=== PATIENT | female | born 1975 | race Caucasian/White ===

== ENCOUNTER → 2021-10-28 13:56 | Outpatient (BNVA) | payer OTHER, SELFPAY | PROVIDERS: PCP Internal Medicine; Visit Provider Psychiatry & Neurology Neurology | DX: R29.818 Other symptoms and signs involving the nervous system (principal); F32.A Depression, unspecified; F41.9 Anxiety disorder, unspecified | CPT/HCPCS: 99202 ==

== ENCOUNTER 2021-11-19 18:01 | Outpatient (REF) | payer OTHER, SELFPAY ==
--- NOTE | ~2021-11-19 | MR_ITS ---
EXAMINATION: MR BRAIN WITHOUT CONTRAST CLINICAL INFORMATION: Other symptoms and signs involving the nervous system. Patient states 2 concussions. COMPARISON: None available. TECHNIQUE: Multiplanar, multisequence imaging of the brain was performed without intravenous contrast. FINDINGS: There is no acute infarction, mass, hemorrhage, or extra-axial collection. The ventricles, sulci, and basilar cisterns are normal in size and configuration. The brain parenchyma signal appears normal. No encephalomalacia or gliosis is seen. The cerebellar tonsils terminate normally above the foramen magnum. The flow voids of the major intracranial arteries appear intact. The bones and extracranial soft tissues are unremarkable. MR/MR head/brain wo con IMPRESSION: No acute infarct, mass lesion, intracranial hemorrhage, or evidence of hydrocephalus.
== END 2021-11-19 18:02 | disposition home or self-care (01) ==
LOC: HO.MRI 18:01
PROVIDERS: Visit Provider Psychiatry & Neurology Neurology
DX: R29.818 Other symptoms and signs involving the nervous system (principal)
CPT/HCPCS: 70551

== ENCOUNTER 2021-12-08 12:41 | Outpatient (REF) | payer OTHER, SELFPAY ==
--- NOTE | 2021-12-08 12:43 | EEG_ITS ---
This is a 16-channel EEG with an EKG lead. The patient is reported awake during the tracing. Background EEG rhythm is low amplitude fast with no obvious asymmetry or paroxysmal tendency. Photic stimulation does not produce any significant abnormality. Hyperventilation is not performed. Cardiac lead does not reveal any significant abnormality. No sharp wave spikes or paroxysmal tendency noted. IMPRESSION: Unremarkable EEG. MD CATHLEEN Urias/RICKY / [id number]
== END 2021-12-08 12:42 | disposition home or self-care (01) ==
LOC: HO.NEURO 12:41
PROVIDERS: Visit Provider Psychiatry & Neurology Neurology
DX: R29.818 Other symptoms and signs involving the nervous system (principal)
CPT/HCPCS: 95816

== ENCOUNTER 2023-10-10 | Outpatient (REF) | payer OTHER, SELFPAY ==
[2023-10-11 11:12] LABS: Influenza A PCR NEGATIVE (Negative); Influenza B PCR NEGATIVE (Negative); Resp Syncy Virus RNA Qual PCR NEGATIVE (Negative); SARS COV2 PCR INHOUSE NEGATIVE (Negative)
== END 2023-10-10 00:01 | disposition home or self-care (01) ==
LOC: HO.HMGCLNP
PROVIDERS: Visit Provider Physician Assistant
DX: J06.9 Acute upper respiratory infection, unspecified (principal)
CPT/HCPCS: 0241U

== ENCOUNTER 2023-10-10 15:22 | Outpatient (AMB) | payer OTHER, SELFPAY ==
--- NOTE | 2023-10-10 15:24 | AM.OFFWIN_ITS ---
Intake Vital Signs 10/10/23 15:30 Height 5 ft 5.5 in Weight 113 lb BMI 18.5 BP 106/64 Blood Pressure Location Lt brachial Position Sitting Pulse 92 Pulse Source Pulse Oximeter Temp 98.3 F Temp Source Oral Pulse Oximetry (%) 98 Oxygen Delivery Method Room Air Intake Visit Reasons: Diarrhea and Vomiting Intake Note: pt c/o vomiting and diarrhea which started last night. her kids have been exposed to covid at school but have tested negative. Patient Tobacco Use Status: Never used Tobacco Allergies latex Allergy (Mild, Verified 10/10/23 15:33) Rash risperidone [From Risperdal] Allergy (Mild, Verified 10/10/23 15:33) Weakness reglan Allergy (Mild, Uncoded 10/10/23 15:33) Fatigued Do you need a note to return to daycare/school/sports/work: No HPI HPI Comments History of Present Illness Details Patient is a 47-year-old female complaining of 2 days of nausea vomi ting and diarrhea. She also has associated chills and subjective fevers. She denies any bloody or black stools. She did not actually measure her temperature. She states her kids were both just sick in the last week with similar symptoms. She states there was a COVID outbreak other daycare but she did not actually test her children for COVID. Patient states she does have a history of asthma but has inhalers at home that she uses when needed. She denies needing to use them recently. She denies any shortness of breath, cough, head congestion. [facility] Medical History (Updated 10/10/23 @ 15:52 by Elena Kirkland PA-C) Headache Post concussion syndrome Arthritis Anxiety Depression Transient neurological symptoms Surgical History (Updated 10/28/21 @ 14:55 by Lilly Pacheco CMA) H/O breast augmentation Family History (Updated 10/28/21 @ 14:56 by Lilly Pacheco CMA) Maternal Grandmother Breast cancer Social History (Updated 10/28/21 @ 14:56 by Lilly Pacheco CMA) Patient Tobacco Use Status: Never used Tobacco Gender identity: Female Review of Systems Const All systems reviewed & are unremarkable except as noted in HPI and below Physical Exam Vital Signs: Last Vital Signs Temp 98.3 F 08/13/24 15:30 Pulse 92 10/10/23 15:30 BP 106/64 10/10/23 15:30 Pulse Ox 98 10/10/23 15:30 Oxygen Delivery Method Room Air 10/10/23 15:30 BMI result Body Mass Index 18.5 Const General: cooperative, healthy appearing, comfortable, no acute distress and well developed Orientation/consciousness: patient oriented x3 Limitations: no limitations HEENT Head: Yes normal to inspection Ears: hearing grossly normal bilaterally General nose exam: Normal external nose present Face and sinus: Yes normal facial exam Eyes General: appearance normal, both eyes and all related structures Neck Neck: Yes normal visual inspection and Yes full ROM Resp Effort & Inspection: normal respiratory effort and able to speak in complete sentences Skin General skin exam: no rashes or lesions noted Neuro General: patient oriented x3 Extrem General: Yes normal to inspection Assessment & Plan Assessment & Plan (1) Viral gastritis: Code(s): K29.70 - Gastritis, unspecified, without bleeding Plan: sent covid test. Recommended patient rest, gave work note for the next 3 days as well as keep hydrated. Plan see above Orders: Orders SARS-CoV2/FLU/RSV Today J06.9 - Acute upper respiratory infection, unspecified Coding Level of Care Code New Pt Level 3 (38810) Diagnoses Viral gastritis K29.70
[2023-10-10 15:30] VITALS: BP 106/64; PULSE 92; TEMP 36.8; O2SAT 98; BMI 18.5
== END 2023-10-10 16:28 | disposition home or self-care (01) ==
PROVIDERS: PCP Internal Medicine; Visit Provider Physician Assistant
DX: K29.70 Gastritis, unspecified, without bleeding (principal)
CPT/HCPCS: 99203

== ENCOUNTER 2024-05-18 20:15 | Emergency (ER) | payer OTHER, SELFPAY ==
[2024-05-18 20:19] VITALS: BP 125/68; PULSE 85; RESP 18; TEMP 36.3; O2SAT 96; BMI 19.1
--- NOTE | 2024-05-18 20:19 | ED_ITS ---
HPI - Back Pain/Injury General Chief Complaint: Back Pain/Injury Stated Complaint: fractured spine/pain Time Seen by Provider: 05/19/24 00:52 Source: patient, RN notes reviewed, old records reviewed and other ([facility] records) Mode of arrival: ambulatory Limitations: no limitations History of Present Illness ED Provider: Eboni HPI Narrative: 48-year-old female presents for evaluation of back pain. Patient was seen at [facility] on 05/04/2024 She was discharged on 05/11/2024 with a diagnosis of L5-S1 disc herniation, bacteremia but no evidence of diskitis or epidural abscess. The patient was discharged with pregabalin, tizanidine and hydromorphone 4 mg tablets dispensed 15 that would last 7 days She reports that she was seeing a new prescription but ?no pharmacy will fill it because they say there is a backwards. ? She is currently on IV cefazolin for bacteremia She denies any additional injury or trauma. She states her pain is 10/10 and causing while muscle spasms. ? She was no difficult urinating or having bowel movements She does report numbness and tingling going down her lower leg Related Data Home Medications ?Medication ?Instructions ?Recorded ?Confirmed etanercept 50 mg/mL (1 mL) 50 mg subcut QWEEK 10/28/21 10/28/21 subcutaneous pen injector (Enbrel SureClick) Previous Rx's ?Medication ?Instructions ?Recorded morphine 15 mg immediate release 15 mg PO Q6H PRN severe pain 05/19/24 tablet (scale score 7-10) #12 tabs Allergies Allergy/AdvReac Type Severity Reaction Status Date / Time latex Allergy Mild Rash Verified 05/18/24 20:25 risperidone [From Risperdal] Allergy Mild Weakness Verified 05/18/24 20:25 reglan Allergy Mild Fatigued Uncoded 05/18/24 20:25 Review of Systems Constitutional: Constitutional: Denies body ache(s), Denies chills, Denies fever(s) and Denies frequent falls Eyes: Eyes: Denies blurry vision ENT: Denies vertigo and Denies dizziness Cardiovascular: Cardiovascular: Denies chest pain Respiratory: Respiratory: Denies cough Gastrointestinal: Gastrointestinal: Denies abdominal pain Musculoskeletal: Musculoskeletal: Reports back pain Integumentary/Breasts: Skin/Breast: Denies rash Neurologic: Denies vertigo, Denies dizziness and Denies frequent falls Psychiatric: Psychiatric: Denies anxiety PMFSH Past Medical History Medical History (Updated 05/19/24 @ 01:06 by James Lyn) Headache Post concussion syndrome Arthritis Anxiety Depression Transient neurological symptoms Surgical History (Updated 10/28/21 @ 14:55 by Lilly Pacheco CMA) H/O breast augmentation Family History Family History (Updated 10/28/21 @ 14:56 by Lilly Pacheco CMA) Maternal Grandmother Breast cancer Social History Social History (Updated 10/28/21 @ 14:56 by Lilly Pacheco CMA) Patient Tobacco Use Status: Never used Tobacco Smoked in Last 30 Days: Yes Use of substances other than those prescribed or required for medical reasons: No Advance Directives: No Advance Directives Information Provided: Yes Patient : No Gender identity: Female Physical Exam Vital Signs: Vital Signs: Last Vital Signs Temp 97.9 F 05/19/24 01:26 Pulse 72 05/19/24 01:26 Resp 16 05/19/24 01:26 BP 101/43 L 05/19/24 01:26 Pulse Ox 100 05/19/24 01:26 O2 Del Method Room Air 05/19/24 01:26 BMI result Body Mass Index 19.1 Const: General: healthy appearing, comfortable, no acute distress, alert and awake Nutritional Appearance: well nourished Orientation/consciousness: patient oriented x3 HEENT: Head: Yes normocephalic and Yes atraumatic Eyes: Eyelids: Yes eyelids normal Conjunctivae: conjunctivae normal Sclerae: sclerae normal Corneas: corneas normal Pupils: Equal, round and reactive pupils present EOM: EOMs intact bilaterally Neck: Neck: Yes full ROM Resp: Effort & Inspection: normal respiratory effort, able to speak in complete sentences and not labored Cardio: Rate: regular rate Rhythm: regular rhythm GI: Inspection: No distended Palpation (GI): Soft to palpation, not firm, nontender, no guarding and not rigid Back/Spine/Pelvis: Other: Vague tenderness across the lumbar spine. Skin: General skin exam: elasticity normal Neuro: General: patient oriented x3 Cranial nerves: Yes Equal, round and reactive pupils present and Yes Bilaterally intact EOM present Cognition (Neuro): normal cognition Motor exam (neuro): 5/5 motor strength present throughout Course Course Course Narrative: This is an RME performed by Gopal Osuna CNP: Additional HPI, ROS, PE not included below will be deferred to primary provider. Patient is a 48-year-old female who presents to the emergency department for evaluation for worsening back pain, since Monday05/15/24, which is the day she ran out of her hydromorphone and tizanidine, no new injury, no new symptoms, here for pain control. has known spinal fracture and disc herniations, with impaired sensation of the bilateral lower extremities, without bladder bowel dysfunction. Reports additionally recent dx bacteremia, unclear etiology, on IV ABX Cefazolin to RUQ PICC line. Reviewed [facility]; discharged from [facility] 05/11/24 - pmhx rheumatoid arthritis, abnormal uterine bleeding, history of sacral fracture with degenerative changes of L4-L5 and L5-S1 with disc herniation, ongoing back pain for 2 months. On MRI that was concern for L5-S1 right paracentral disc herniation with compression of the S1 nerve root in the lateral recess. RX Dilaudid 2mg Q6h (4mg tablets total 15- dispensed 05/11 for 7 day supply), pregabalin 100 mg t.i.d., tizanidine 4 mg t.i.d. Plan: Placed in waiting room pending bed availability for further assessment and pain control Reevaluation(s) Reevaluation #1: Patient was able to ambulate out of the ER independently. She walked using her walker with a steady, even gait Time: 02:21 Medications Administered Discontinued Medications Generic Name Dose Route Start Last Admin Trade Name Emmie PRN Reason Stop Dose Admin Hydromorphone HCl 4 mg 05/19/24 01:03 05/19/24 01:18 Hydromorphone Hcl 2 Mg Tablet PO 05/19/24 01:04 4 mg ONCE ONE Administration Medical Decision Making Medical Decision Making [facility] Narrative: 48-year-old female with past medical history significant for rheumatoid arthritis, abnormal uterine bleeding, disc herniation, bacteremia on cefazolin p resents for evaluation of ?pain control. Patient received a hydromorphone prescription of 4 mg, a 7 days' supply that would have today. I did review her MRI from [facility] from 2 weeks ago. She has no fever, no additional trauma, a reassuring exam. I do not see any indication to repeat any imaging or testing. I agreed to give the patient a dose of Dilaudid 4 mg p.o. in the ER. I offered to change a prescription from hydromorphone to morphine which the patient is agreeable to. I advised her not to take any other narcotics with the morphine. She may follow up with her outpatient providers Differential Diagnosis Differential Diagnoses: The differential diagnosis associated with the presentation includes Acute on chronic back pain Sciatica Disc herniation Radiculopathy Cauda equina less likely Discharge Plan Discharge Clinical Impression: Chronic back pain Patient Disposition: Home, Self-Care Instructions: Back Pain (ED) Additional Instructions: You may use ibuprofen/Tylenol for pain. Take morphine as needed for severe breakthrough pain. This may make you drowsy, do not drink alcohol or drive after taking it Do not mix morphine with Dilaudid if you are able to get that filled Take all of your other medications as prescribed Prescriptions: New morphine 15 mg tablet 15 mg PO Q6H PRN (Reason: severe pain (scale score 7-10)) Qty: 12 0RF Rx Instructions: Partial Fill upon patient request. No Action Enbrel SureClick 50 mg/mL (1 mL) pen injector 50 mg subcut QWEEK Interventions: ED Discharge Assessment Last Done: 05/19/24 01:26 Print Language: Tongan
[2024-05-19 00:54] VITALS: BP 101/43; PULSE 72; RESP 16; TEMP 36.6; O2SAT 100
[2024-05-19] MEDS: HYDROmorphone HCl 2 MG TABLET 4 MG PO (01:18)
[2024-05-19 01:26] VITALS: BP 101/43; PULSE 72; RESP 16; TEMP 36.6; O2SAT 100
== END 2024-05-19 02:24 | disposition home or self-care (01) ==
PROVIDERS: Emergency Provider Internal Medicine; PCP Internal Medicine
DX: M54.9 Dorsalgia, unspecified (principal); G89.29 Other chronic pain; M06.9 Rheumatoid arthritis, unspecified; Z79.899 Other long term (current) drug therapy
CPT/HCPCS: 99283; 99284

== ENCOUNTER 2024-06-26 11:17 | Outpatient (AMB) | payer OTHER, SELFPAY ==
--- NOTE | 2024-06-26 11:23 | MHC.OFFVIS ---
Vital Signs 06/26/24 11:24 Height 5 ft 5 in Weight 123 lb BMI 20.5 BP 97/55 L Blood Pressure Location Lt brachial Position Sitting Respiration 16 Pulse 66 Pulse Source Pulse Oximeter Pulse Oximetry (%) 100 Oxygen Delivery Method Room Air Intake Visit Reasons: Lumbar Radiculopathy Intrusion Analyst Required: No Allergies latex Allergy (Mild, Verified 06/26/24 11:25) Rash risperidone [From Risperdal] Allergy (Mild, Verified 06/26/24 11:25) Weakness reglan Allergy (Mild, Uncoded 06/26/24 11:25) Fatigued Medication List - Last Reconciled 06/26/24 by Jennifer Dailey LPN etanercept (Enbrel SureClick) 50 mg subcut QWEEK fluoxetine 10 mg PO DAILY folic acid 1 mg PO DAILY HPI Comments Details: Reny is very pleasant 48 years old female who presents in my office with complains on pain on the right side of the back with radiation down to the right lower extremity with sensation of numbness in the right posterior thigh and right calf. She also reports numbness in the right 4th and 5th toe. She reports that the pain started in February of 2024. She was admitted with this pain to [facility] [place]. The admission was in April. She reported that she spent 9 days in the hospital. She also reported that she was diagnose with sacral fracture. This information is not available to me. She reports that because of her pain she can not sleep normally can not do activities of daily living can not take care of herself can not function normally. She has homemaker and on permanent disability. She reports that cold and movements aggravate her pain. Oral medications moderately helps her pain, she is currently on opioids. Primary care physician to cover the prescription from [facility] [place]. In terms of tissue damage he reports her pain as pulsing, throbbing, pounding, shooting, stabbing, sharp, cutting, tugging, hot burning, tingling, hurting, aching, heavy, tiring, exhausting sensation. She had multiple images of her lumbar spine and sacral bone performed in [facility] [place]. Those are not available to me today. She had extensive course of physical therapy including while in the hospital and after that at home and she continues home exercise program. She reports very minimal improvement. She also received occupational therapy in April which allowed her to be more mobile but did not affect her pain. Of note in her history there is 3 pregnancies with vaginal delivery. Her past medical history significant for epilepsy, fatigue, anemia, history of hepatitis C with nondetectable viral load after the treatment and history of arthritis rheumatoid arthritis. Her past surgical history is negative but she had multiple admissions. She denies smoking cigarettes she stopped 20 years ago she denies drinking alcohol she drinks 2 cups of coffee a day and she denies recreational drugs. [facility] Medical History (Updated 06/26/24 @ 12:55 by Anderson Cool MD) Headache Post concussion syndrome Arthritis Anxiety Depression Transient neurological symptoms Surgical History (Updated 10/28/21 @ 14:55 by Lilly Pacheco CMA) H/O breast augmentation Family History (Updated 10/28/21 @ 14:56 by Lilly Pacheco CMA) Maternal Grandmother Breast cancer Social History (Updated 10/28/21 @ 14:56 by Lilly Pacheco CMA) Patient Tobacco Use Status: Never used Tobacco Gender identity: Female Review of Systems Const Reports no additional complaints Eyes Reports no additional complaints ENT Reports Normal hearing present Card Reports no additional complaints Resp Reports as per HPI GI Reports no additional complaints Reports no additional complaints Musc Reports as per HPI Neuro Reports as per HPI, Reports Normal hearing present, Denies Abnormal speech present, Denies confusion and Denies Sensory deficit (Neuro) Psych Denies confusion Physical Exam Vital Signs: Last Vital Signs Pulse 66 06/26/24 11:24 Resp 16 06/26/24 11:24 BP 97/55 L 06/26/24 11:24 Pulse Ox 100 06/26/24 11:24 Oxygen Delivery Method Room Air 06/26/24 11:24 BMI result Body Mass Index 20.5 Const General: healthy appearing, comfortable, no acute distress and well developed; No confusion Nutritional Appearance: thin and underweight Orientation/consciousness: patient oriented x3 and No confusion Eyes General: appearance normal, both eyes and all related structures Pupils: Equal, round and reactive pupils present EOM: EOMs intact bilaterally Neck Neck: Yes full ROM Chest Chest palpation & inspection: normal inspection of the chest Resp Effort & Inspection: normal respiratory effort, able to speak in complete sentences, normal respiratory pattern, no audible wheezes and no cough Cardio Jugular venous distension: no JVD GI Inspection: Yes normal to inspection Back/Spine/Pelvis Other: There is tenderness on palpation in projection of the right sacroiliac joint. Gaenslen test, pelvic compression test, thigh thrust test, Melchor test all positive the right. Neuro General: patient oriented x3, gait normal and No confusion Cranial nerves: Yes CN's II-XII intact bilaterally, Yes Equal, round and reactive pupils present, Yes Normal hearing present and Yes Ability to bilaterally elevate shoulders present Speech: No Abnormal speech present Gait exam (Neuro): Normal gait present Motor exam (neuro): 5/5 motor strength present throughout Sensory Exam: No Sensory deficit (Neuro) Extrem General: No pedal edema Psych Speech and movement: Normal speech and movement present Affect: normal affect Attitude: cooperative Thought process: Normal thought process present Thought content: Normal thought content present Insight: Good insight present (Psych) Judgement: Good judgement present (Psych) Assessment & Plan Assessment & Plan (1) Sacroiliitis: Code(s): M46.1 - Sacroiliitis, not elsewhere classified Category: Medical (2) Sacroiliac joint dysfunction of right side: Code(s): M53.3 - Sacrococcygeal disorders, not elsewhere classified Category: Medical Plan It looks like that patient is suffering from sacroiliitis on the right. She has a history of presumable fracture of the sacrum but it was in February and since then if the risks fracture it completely healed. I recommended her I will schedule her for the diagnostic right sacroiliac joint injection. If diagnostic injection will result in good pain relief for the patient I will schedule her for therapeutic sacroiliac joint injection and we will consider different other modalities to help her pain in the sacroiliac joint. If it will not help her pain we would need to obtain MRI from the [facility] [place] and consider radiculopathy. Coding Level of Care Code New Pt Level 3 (11606) Diagnoses Sacroiliitis M46.1 Sacroiliac joint dysfunction of right side M53.3
[2024-06-26 11:24] VITALS: BP 97/55; PULSE 66; RESP 16; O2SAT 100; BMI 20.5
--- OUTSIDE RECORDS SUMMARY | 2024-06-26 12:54 | XMS_ITS | Encounter Summary ---
Author Organization [facility] Address [address] [place] [address] Care Team Providers Care Buffer Operator Name Role Phone Triston Samaniego MD Primary Care Provider [phone] Reason for Visit * Reason Onset Date Comments faxed order 06/20/2024 [facility] [id number] Encounter Details Date Type Department Care Team (Late st Contact Info) Description 06/20/2024 Telephone Adult Medicine [address] [phone] Triston Samaniego MD [address] [place] [id number] faxed order ([facility] [id number]) Social History Tobacco Use Types Packs/Day Years Used Date Smoking Tobacco: Former Cigarettes 0.5 24.4 1 - 05/21/2018 Smokeless Tobacco: Never Alcohol Use Standard Drinks/Week Comments No 0 (1 standard drink = 0.6 oz pur e alcohol) Housing Instability Answer Date Recorde d Are you worried that in the next 2 months you may not have stable housing? No 05/11/2024 Food Access & Nutrition Answer Date Rec orded Do you have access to a vari ety of food including fruits and vegetables? Yes 05/11/2024 Access to Healthcare Answer Date Record ed Within the last 3 months, ho w many times did you visit the emergency department for your medical care? 1 05/11/2024 Health Literacy Answer Date Recorded How often do you need to hav e someone help you when you read instructions, pamphlets, or other written material from your doctor or pharmacy? Never 05/11/2024 Caregiver: How often do you need to have someone help you when you read instructions, pamphlets, or other written material from your doctor or pharmacy? Not on file 05/11/2024 Financial Risk Answer Date Recorded How hard is it for you to pa y for the very basics like food, housing, medical care, and air conditioning / heating? Somewhat hard 05/11/2024 Transportation Answer Date Recorded Has the lack of transportati on kept you from meetings, work, or from getting things needed for daily living? No Has the lack of transportati on kept you from medical appointments or from getting medications? No 05/11/2024 Social Isolation Answer Date Recorded How often do you feel lonely or isolated from th ose around you? Never 05/11/2024 Food Risk Answer Date Recorded Within the past 12 months we worried whether our food would run out before we got money to buy more. Never true 05/11/2024 Within the past 12 months th e food we bought just didn't last and we didn't have money to get more. Never true 05/11/2024 Dependent Care Answer Date Recorded Do you need help finding or paying for care for your loved ones. For example, children counselor or elderly care for an older adult? No 05/11/2024 Education Answer Date Recorded Do you think completing more education or training, like finishing a GED, going to college, or learning a trade, would be helpful for you? Yes 05/11/2024 Employment and Income Answer Date Recor ded During the last four weeks, have you been actively looking for work? No 05/11/2024 Living Situation Answer Date Recorded What is your living situation? 0 05/11/2024 Comments No Sex and Gender Information Value Date Recorded Sex Assigned at Not on file Legal Sex Female 7:38 AM EDT Gender Identity Not on file Sexual Orientation Not on file documented as of this encounter Progress Notes * Stephany Mina - 06/20/2024 1:33 PM EDT Faxed order received from [facility] [id number] please sign and fax to [phone]. documented in this encounter Plan of Treatment Upcoming Encounters Date Type Department Care Team (Late st Contact Info) Description 07/04/2024 9:15 AM EDT Office Visit Adult Medicine [address] [phone] Triston Samaniego MD [address] [place] [address] 09/10/2024 9:50 AM EDT Appointment Radiology Department - [address] [phone] documented as of this encounter Visit Diagnoses Not on filedocumented in this encounter Additional Health Concerns Assessment Noted Time PHQ-9 Depression Total Score: 0 05/12/19 25 6:17 PM EDT documented as of this encounter Care Teams Buffer Operator Relationship Specialty Start Date End Date Triston Samaniego MD [address] [place] [address] PCP - General Internal Medicine 07/15/21 documented as of this encounter
--- OUTSIDE RECORDS SUMMARY | 2024-06-26 12:54 | XMS_ITS | Encounter Summary ---
Author Organization [facility] Address [address] [place] [address] Care Team Providers Care Film Or Tape Librarian Name Role Phone Triston Samaniego MD Primary Care Provider [phone] Reason for Visit * Reason Onset Date Comments faxed order 06/06/2024 [facility] [id number] Encounter Details Date Type Department Care Team (Late st Contact Info) Description 06/06/2024 Telephone Adult Medicine [address] [phone] Triston Samaniego MD [address] [place] [phone] faxed order ([facility] [id number]) Social History Tobacco Use Types Packs/Day Years [...] care for your loved ones. For example, child care worker or elderly care for an older adult? [...] encounter Progress Notes * Stephany Mina - 06/06/2024 2:01 PM EDT Faxed order received from [facility] [id number] please sign and fax to [phone]. documented in this encounter Plan of Treatment Upcoming Encounters Date Type Department Care Team (Late st Contact Info) Description 07/04/2024 9:15 AM EDT Office Visit Adult Medicine [place] - [address] [phone] Triston Samaniego MD [address] [place] [address] 09/10/2024 9:50 AM EDT Appointment Radiology Department - [address] [phone] documented as of this encounter Visit Diagnoses Not on filedocumented in this encounter Additional Health Concerns Assessment Noted Time PHQ-9 Depression Total Score: 0 05/12/19 25 6:17 PM EDT documented as of this encounter Care Teams Film Or Tape Librarian Relationship Specialty Start Date End Date Triston Samaniego MD [address] [place] [address] PCP - General Internal Medicine 07/15/21 documented as of this encounter
--- OUTSIDE RECORDS SUMMARY | 2024-06-26 12:54 | XMS_ITS | Encounter Summary ---
Author Organization [facility] Address [address] [place] [address] Care Team Providers Care Forest Logistics Manager Name Role Phone Triston Samaniego MD Primary Care Provider [phone] Reason for Visit * Reason Onset Date Comments faxed order 06/11/2024 [facility] [id number] Encounter Details Date Type Department Care Team (Late st Contact Info) Description 06/11/2024 Telephone Adult Medicine [address] [phone] Triston Samaniego MD [address] [place] [phone] faxed order ([facility] [id number]) Social History Tobacco Use Types Packs/Day Years [...] care for your loved ones. For example, exceptional children teacher or elderly care for an older adult? [...] encounter Progress Notes * Stephany Mina - 06/11/2024 4:06 PM EDT Faxed order received from [facility] [id number] please sign and fax to [phone]. documented in this encounter Plan of Treatment Upcoming Encounters Date Type Department Care Team (Late st Contact Info) Description 07/04/2024 9:15 AM EDT Office Visit Adult Medicine [place] - [address] [phone] Triston Samaniego MD [address] [place] [address] 09/10/2024 9:50 AM EDT Appointment Radiology Department - [address] [phone] documented as of this encounter Visit Diagnoses Not on filedocumented in this encounter Additional Health Concerns Assessment Noted Time PHQ-9 Depression Total Score: 0 05/12/19 25 6:17 PM EDT documented as of this encounter Care Teams Forest Logistics Manager Relationship Specialty Start Date End Date Triston Samaniego MD [address] [place] [address] PCP - General Internal Medicine 07/15/21 documented as of this encounter
--- OUTSIDE RECORDS SUMMARY | 2024-06-26 12:54 | XMS_ITS | Encounter Summary ---
Author Organization [facility] Address [address] [place] [address] Care Team Providers Care Straightening Roll Operator Name Role Phone Triston Samaniego MD Primary Care Provider [phone] Reason for Referral * Consultation (Routine) - Closed Specialty Diagnoses / Procedures Referred By Nj t Referred To Contact Plastic Surgery Diagnoses Breast implant rupture, initial encounter Triston Samaniego MD [address] [place] [address] Phone: tel: fax: Bob Franz MD [address] [place] [address] Dr [address] [place] [phone] Phone: tel: fax: Referral ID Status Reason Start Date Expiration Date V isits Requested Visits Authorized [id number] Closed Specialty Services Required 06/05/2024 06/05/2025 1 1 Reason for Visit * Reason Onset Date Comments Referral 06/05/2024 Encounter Details Date Type Department Care Team (Late st Contact Info) Description 06/05/2024 Telephone Adult Medicine [address] [phone] Triston Samaniego MD [address] [place] [address] Referral Social History Tobacco Use Types Packs/Day Years [...] as of this encounter Progress Notes * James Peters - 06/05/2024 9:10 AM EDT Patient calling with breast surgeon fax # , [facility] - fax # [phone] [facility] Plastics and reconstructive surgery Breast implant rupture documented in this encounter Plan of Treatment Upcoming Encounters Date Type Department Care Team (Late st Contact Info) Description 07/04/2024 9:15 AM EDT Office Visit Adult Medicine [address] [phone] Triston Samaniego MD [address] [place] [phone] 09/10/2024 9:50 AM EDT Appointment Radiology Department - [address] [phone] Scheduled Referrals Name Type Priority Associated Diagnoses Order Schedule Ambulatory referral to Plastic Surgery Outpatient Referral Routine Breast implant rupture, initial encounter 1 Occurrences starting 06/05/2024 until 06/05/2025 documented as of this encounter Visit Diagnoses Diagnosis Breast implant rupture, initial encounter- Primary Encounter for screening mammogram for breast cancer documented in this encounter Additional Health Concerns Assessment Noted Time PHQ-9 Depression Total Score: 0 05/12/19 25 6:17 PM EDT documented as of this encounter Care Teams Straightening Roll Operator Relationship Specialty Start Date End Date Triston Samaniego MD [address] [place] [address] PCP - General Internal Medicine 07/15/21 documented as of this encounter
--- OUTSIDE RECORDS SUMMARY | 2024-06-26 12:54 | XMS_ITS ---
Author Name [facility] Organization Unknown Encounters Encounter Type Encounter Reason Primary Diagnosis Location Date Ambulatory [facility] 04/30/2024 Ambulatory [facility] 04/30/2024 Care Team Organization Name Specialty Phone Email Start Date End Da [facility] 2024
--- OUTSIDE RECORDS SUMMARY | 2024-06-26 12:54 | XMS_ITS | Encounter Summary ---
Author Organization [facility] Address [address] [place] [address] Care Team Providers Care Coating Machine Feeder Name Role Phone Triston Samaniego MD Primary Care Provider [phone] Reason for Visit * Reason Onset Date Comments Request For Order(s) 06/24/2024 Encounter Details Date Type Department Care Team ([facility] st Contact Info) Description 06/24/2024 Telephone Adult Medicine [address] [phone] Osei Velasquez MA Request For Order(s) Social History Tobacco Use Types Packs/Day Years [...] your loved ones. For example, child care centre director or elderly care for an older adult? [...] as of this encounter Progress Notes * Osei Velasquez MA - 06/24/2024 1:43 PM EDT Order # [id number] scanned and faxed right fax [id number] documented in this encounter Plan of Treatment Upcoming Encounters Date Type Department Care Team (Late st Contact Info) Description 07/04/2024 9:15 AM EDT Office Visit Adult Medicine [place] - [address] [phone] Triston Samaniego MD [address] [place] [address] 09/10/2024 9:50 AM EDT Appointment Radiology Department - [address] [phone] documented as of this encounter Visit Diagnoses Not on filedocumented in this encounter Additional Health Concerns Assessment Noted Time PHQ-9 Depression Total Score: 0 05/12/19 25 6:17 PM EDT documented as of this encounter Care Teams Coating Machine Feeder Relationship Specialty Start Date End Date Triston Samaniego MD [address] [place] [address] PCP - General Internal Medicine 07/15/21 documented as of this encounter
--- OUTSIDE RECORDS SUMMARY | 2024-06-26 12:55 | XMS_ITS | Data Portability ---
Author Organization YAZAN Thomas s, [facility] Address [address] [place] [address] Assessment No assessment recorded. Plan of Treatment Reminders Order Date Submit Date Provider Last Modified By Organization Details Last Modified Time Details Appointments None recorded. Lab SARS CoV 2 (COVID-19) Ag, QL, IA, upper respiratory specimen 2022 023 lalithaKwabena _[facility], [address] [place] [address], [phone], 3 15:48:33 rapid strep group A, throat 2022 023 [facility] [address] [place] [address], [address] [place] [address], [phone], 3 15:48:34 streptococc us group A, culture, throat 2022 023 [facility], [address] [place] [address], [place], [address], 3 10:11:17 rapid flu (A+B) 2022 023 [facility] 2099[facility], [address] [place] [address], [phone], 3 08:36:09 Referral None recorded. Procedures None recorded. Surgeries None recorded. Imaging None recorded. Medication Orders amoxicillin 875 mg tablet 2022 023 [facility] #[id number], [address] [facility], [place], [address], 3 15:48:33 Allergy Relief (fluticason e) 50 mcg/actuati on nasal spray,suspe nsion 2022 023 [facility] [address] [facility], [place], [address], 3 15:48:33 benzonatate 200 mg capsule 2022 023 [facility], [address] [facility], [place], [address], 3 15:48:33 prednisone 20 mg tablet 2022 023 [facility] [address] [facility], [place], [address], 3 15:02:42 albuterol sulfate HFA 90 mcg/actuati on aerosol inhaler 2022 023 [facility] [address] [facility], [place], [address], 3 15:03:08 benzonatate 200 mg capsule 2022 023 [facility] [address] [facility], [place], [address], 3 15:02:41 Allergy Relief (fluticason e) 50 mcg/actuati on nasal spray,suspe nsion 2022 023 [facility] [address] [facility], [place], [address], 3 08:36:13 Patient TargetsNo targets recorded. Patient Instructions Encounter Date Encounter Id Patient Instructions Last Modified By Organization Details Last Modified Time 06/03/2022 [id number] cough: care instructions Not available 06/03/2022 08:36:09 Patient instruct ed on worsening signs and symptoms that would require further evaluation by ED or PCP such as fever of 101.0 or greater, congestion accompanied with coughing, vomiting, diarrhea, abdominal pain, decreased oral intake, lethargy, or other new symptom(s) experienced not discussed during this visit. Use humidifier and ensure good hydration. If you experience new concerning symptoms, shortness of breath, respiratory distress, or chest pain go to the ER. Use the medications prescribed. May use Decongestants if tolerated and no history of elevated blood pressure or Diabetes. Use saline nasal saline and Flonase daily for1 week. You may use tylenol for pain/fever. Do not take prednisone with Ibuprofen. Get some extra rest. When should you call for help? Call anytime you think you may need emergency care. For example, call if: You have severe trouble breathing. Call your doctor now or seek immediate medical care if: You have new or worse trouble breathing. You cough up dark brown or bloody mucus (sputum). You have a new or higher fever. You have a new rash. Watch closely for changes in your health, and be sure to contact your doctor if: You cough more deeply or more often, especially if you notice more mucus or a change in the color of your mucus. You are not getting better as expected. Not available 06/03/2022 08:36:06 09/16/2022 [id number] sore throat: car e instructions Not available 09/16/2022 15:48:30 Discussed potential complications and intervention options with the patient during this visit. Patient was instructed to increase room humidity and eat soft bland foods. Raising the head of the bed, lozenges, and saline nasal spray were also recommended. Patient may take ibuprofen or acetaminophen as needed for pain control. If the issue does not improve in 24-48 hours, patient should return to the clinic for follow-up. You have been prescribed an antibiotic for your bacterial illness. While antibiotics are sometimes necessary, they can have a negative impact upon the healthy bacteria within your body. This can result in diarrhea/loose stools and yeast infections. By taking probiotics during the course of your prescription, you can lessen the probability of these undesirable side effects. Probiotics can be purchased oeqv-ilx-htpgnex at your pharmacy in the form of capsules or gummies. They are also found naturally in yogurt with live cultures. Mix salt into a quarter-glass of warm water and stir until no more salt will dissolve. Gargle and spit out the salt water mixture one mouthful at a time until the glass is empty. Repeat 4 times daily. Hand hygiene is a hernandez measure for preventing spread to others, especially after coughing or sneezing and before preparing foods or eating, and we remind all patients of its importance. Please discard of your current tooth brush and get a new one after being on the antibiotic for 3-4 days to prevent reinfection. You are considered contagious until you have the antibiotic for 24 hours. We have sent out for lab results, typically take 3-5 days to return. Not available 09/16/2022 15:48:44 Sinusitis is an infection of the lining of the sinus cavities in your head. Sinusitis often follows a cold. It causes pain and pressure in your head and face. In most cases, sinusitis gets better on its own in 1 to 2 weeks. But some mild symptoms may last for several weeks. Sometimes antibiotics are needed. if you are having problems. It's also a good idea to know your test results and keep a list of the medicines you take. How can you care for yourself at home? Take an moqu-yir-wkbusxu pain medicine. Avoid Ibuprofen, Aleve and Aspirin if . If the doctor prescribed antibiotics, take them as directed. Do not stop taking them just because you feel better. You need to take the full course of antibiotics. Be careful when taking vafq-gcj-ckqyrpm cold or influenza (flu) medicines and Tylenol at the same time. Many of these medicines have acetaminophen, which is Tylenol. Read the labels to make sure that you are not taking more than the recommended dose. Too much acetaminophen (Tylenol) can be harmful. Breathe warm, moist air from a steamy shower, a hot bath, or a sink filled with hot water. Avoid cold, dry air. Using a humidifier in your home may help. Follow the directions for cleaning the machine. Use saline (saltwater) nasal washes. This can help keep your nasal passages open and wash out mucus and bacteria. You can buy saline nose drops at a grocery store or drugstore. Or you can make your own at home by adding 1 teaspoon (5 millilitres) of salt and 1 teaspoon (5 millilitres) of baking soda to 2 cups (500 mL) of distilled water. If you make your own, fill a bulb syringe with the solution, insert the tip into your nostril, and squeeze gently. Blow your nose. Put a hot, wet towel or a warm gel pack on your face 3 or 4 times a day for 5 to 10 minutes each time. Try a decongestant nasal spray like oxymetazoline (Drixoral). Do not use it for more than 3 days in a row. Using it for more than 3 days can make your congestion worse. Not available 09/16/2022 15:38:22 Reason for Referral None Reported. Results Created Date Observation Date Name Description Value Unit Range Abnormal Flag Note LastModifiedBy Organization Detail LastModifiedTime 06/04/1906/03/2022 rapid flu (A+B) Unknown Analyte Normal = Negati ve Not Available [address] [place] [address], [phone], 06/03/2022 08:14:16 06/04/19 23 06/03/2022 rapid flu (A+B) Unknown Analyte Normal = Negati ve Not Available [address] [place] [address], [phone], 06/03/2022 08:14:16 06/04/19 23 06/03/2022 rapid flu (A+B) Unknown Analyte negati ve Not Available [address] [place] [address], [phone], 06/03/2022 08:14:16 06/04/19 23 06/03/2022 rapid flu (A+B) Unknown Analyte negati ve Not Available [address] [place] [address], [phone], 06/03/2022 08:14:16 09/17/19 23 09/19/2022 BETA STREP GP A CULTU RE beta strep gp A culture NEGATI VE Refer ence Range : Negat dylan Not Available [facility] ([facility]) [address] [facility], [place], [address], 09/19/2022 10:11:16 09/17/19 23 09/16/2022 SARS CoV 2 (COVI D-19) Ag, QL, IA, upper respi rator y speci men Unknown Analyte negati ve Not Available [facility] [address] [place] [address], [phone], 09/16/2022 15:04:16 09/17/19 23 09/16/2022 rapid strep group A, throa t Unknown Analyte negati ve Not Available [facility] [address] [place] [address], [place], [phone], 09/16/2022 15:04:08 Result Notes None recorded. Problems Name Problem SNOMED Code Status Onset Date Resolution Date Notes Provider Name and Address Organization Details Recorded Time Rheumatoid arthritis 94251334 Active 023 JACE rivera PA - [facility] 08:12:15 Problem Notes None recorded. Procedures Surgical History Date Name Laterality Status Provider Name and Address Organization Details Recorded Time 03/28/19 23 OC-UDS Rapid 5 or 10 panel Template completed OCTAVIO DARLING PA - [facility] 03/28/2022 08:39:04 03/24/19 23 UDS Send Out Template completed OCTAVIO DARLING PA - [facility] 03/24/2022 08:26:40 03/19/19 23 OC-UDS Rapid 5 or 10 panel Template completed KELLE PORTER PA - [facility] 03/19/2022 12:17:05 Breast augmentation w/implt completed JACE VALDES PA - [facility] 06/03/2022 08:15:07 Imaging Results None recorded. Procedure Notes None recorded. Medical Equipment None Reported. Allergies Allergen ID Allergen Name Allergen Category Reaction Reaction Severity Criticality Documentation Date Start Date Code Code System Note Provider Name and Address Organization Details Recorded Time 106955 Risperdal medicatio n Not available Not available Not available 06/03/2022 85155 8 RxNorm JACE LEE R null, PA - [facility] 3 08:12:54 769151 latex environme nt,medica tion Not available Not available Not available 06/03/2022 17529 91 RxNorm IRIS ROSA R null, PA - [facility] 3 08:13:07 929824 Reglan medicatio n Not available Not available Not available 06/03/2022 9230 RxNorm IRIS MERLINEIE R null, PA - [facility] 3 08:13:19 Medications Name Sig Start Date Stop Date Status Note LastModified by Organization Details LastModified Time benzonatate 200 mg capsule Take 1 capsule 3 times a day by oral route as needed for 7 days. 2022 active Not Available Not Available Not Avai lable amoxicillin 875 mg tablet Take 1 tablet every 12 hours by oral route with meals for 10 days. 2022 active Not Available Not Available Not Avai lable gabapentin active Not Available Not Av ailable Not Available Allergy Relief (fluticasone ) 50 mcg/actuatio n nasal spray,suspen lita [place] 1 spray every day by intranasal route as directed for 30 days. 2022 active Not Available Not Available Not Avai lable Vitals Date Recorded Body height Body mass index (BMI) Body weight Body temperature Respiratory rate Heart rate Oxygen saturation Oxygen saturation in Arterial blood by Pulse oximetry Systolic blood pressure Diastolic blood pressure Provider Name and Address Organization Details Last Updated DateTime 3 165.1 cm 18.5 kg/m2 19898.7 5 g 97.9 [degF] 18 /min 62 /min 100 % 100 % 122 mm[Hg] 77 mm[Hg] JACE LEE R PA - [facility] 3 08:16:14 Date Recorded Body height Body mass index (BMI) Body weight Pain severity - 0-10 verbal numeric rating [Score] - Reported Respiratory rate Oxygen saturation Oxygen saturation in Arterial blood by Pulse oximetry Heart rate Body temperature Systolic blood pressure Diastolic blood pressure Provider Name and Address Organization Details Last Updated DateTime 3 165.1 cm 19.5 kg/m2 86780.3 1 g 9 18 /min 96 % 96 % 81 /min 98.4 [degF] 93 mm[Hg] 62 mm[Hg] Stephanie Aguilar PA - [facility] 15:05:28 Social History Question Answer Notes LastModified by Organizat ion Details LastModified Time Tobacco Smoking Status Former Smoker JACE COPELANDJW rivera, PA - [facility] 06/03/2022 08:13:57 What Is Your Level Of Alcohol Consumption? None Information not available 06/03/2022 What Is Your Water Source? City Information not available 06/03/2022 What Is Your Heat Source? Other Information not available 06/03/2022 Have You Had Direct Contact, Or Contact During Intimacy, With Monkeypox Rash, Scabs, Or Body Fluids From A Person With Monkeypox? No Information not available 06/03/2022 Do You Use Any Illicit Or Recreational Drugs? No Information not available 06/03/2022 Have You Recently Traveled Abroad? No Information not available 06/03/2022 Do You Or Have You Ever Used Any Other Forms Of Tobacco Or Nicotine? No Information not available 06/03/2022 Sex: Unknown Functional Status None recorded. Mental Status None recorded. Family History Relationship Description Onset Age of this Age Resolved Age Notes LastModified by Organization Details LastModified Time Father No current problems or disability Not available 08:13:43 Mother No current problems or disability Not available 08:13:43 Medical History No medical history recorded. Gynecological History Statement/Question Response Is there any chance of ? No LMP N/A Obstetrics History GPAL:G 0 P 0 0 0 0 Immunizations Vaccine Type Date Status Note Provider Nam e and Address Organization Details Recorded Time Influenza, MDCK, quadrivalent, PF 9 completed Stephanie rivera, PA - [facility] 09/16/2022 15:02:26 pneumococcal polysaccharide PPV23 4 completed Stephaniesuhas rivera, PA - [facility] 09/16/2022 15:02:26 Tdap 8 completed Stephanie Lauren null, PA - [facility] 09/16/2022 15:02:26 Tdap 9 completed Stephanie Lauren null, PA - [facility] 09/16/2022 15:02:26 Influenza, split virus, trivalent, preservative 6 completed Stephanie Talmage null, PA - [facility] 09/16/2022 15:02:26 Influenza, split virus, trivalent, preservative 5 completed Stephanie Talmage null, PA - [facility] 09/16/2022 15:02:26 Influenza, split virus, trivalent, preservative 9 completed Stephanie Lauren null, PA - [facility] 09/16/2022 15:02:26 Influenza, split virus, trivalent, preservative 4 completed Stephanie Talmage null, PA - [facility] 09/16/2022 15:02:26 Influenza, split virus, trivalent, preservative 8 completed Stephanie Lauren null, PA - [facility] 09/16/2022 15:02:26 Influenza, split virus, trivalent, preservative 6 completed Stephanie Lauren null, PA - [facility] 09/16/2022 15:02:26 Influenza, split virus, trivalent, preservative 7 completed Stephanie Lauren null, PA - [facility] 09/16/2022 15:02:26 Influenza, split virus, trivalent, preservative 2 completed Stephanie Lauren null, PA - [facility] 09/16/2022 15:02:26 Influenza, split virus, trivalent, preservative 3 completed Stephanie Lauren null, PA - [facility] 09/16/2022 15:02:26 Influenza, split virus, trivalent, PF 5 completed Stephanie Lauren null, PA - [facility] 09/16/2022 15:02:26 Novel iumqixoij-[id number], preservative-free 9 completed Stephanie Lauren null, PA - [facility] 09/16/2022 15:02:26 Hep A-Hep B 7 completed Stephanie Lauren null, PA - [facility] 09/16/2022 15:02:26 Hep A-Hep B 6 completed Stephanie Lauren null, PA - [facility] 09/16/2022 15:02:26 Hep A-Hep B 6 completed Stephanie Lauren null, PA - [facility] 09/16/2022 15:02:26 Past Encounters Encounter ID Performer Location Encounter Start Date Encounter Closed Date Diagnosis/Indication Diagnosis SNOMED-CT Code Diagnosis ICD10 Code Diagnosis Note [id number] [facility] [address] [place] [phone] 08/05/2021 18:47:14 08/05/2021 20:00:44 [id number] Jaya Brooks [place] [address] [address] [place] [address] 03/19/2022 11:56:07 03/19/2022 12:19:13 History and physical examination, pre-employment 226644147 Z02.1 [id number] J[place] [address] [address] [place] [phone] 03/24/2022 08:03:49 03/24/2022 09:25:14 History and physical examination, pre-employment 957311702 Z02.1 [id number] Jaya Brooks [place] [address] [address] [place] [phone] 03/28/2022 08:10:35 03/28/2022 08:43:04 History and physical examination, pre-employment 564781692 Z02.1 [id number] Jaya Brooks [place] [address] [address] [address] [place] [address] 06/03/2022 08:01:12 06/03/2022 08:42:48 Acute bronchitis 12444609 J20.9 [id number] [place] [address] [address] 09/16/2022 14:32:20 09/16/2022 15:54:10 Exposure to SARS-CoV-2 765221050 Z20.822 Acute pharyngitis 720952 003 J02.9 Health Concerns Section Related Observation LastModified by Organization Detai ls LastModified Time None Recorded Concern Status LastModified by Organization Details LastModified Time None Recorded Advance Directives Directive None Recorded Payers Encounter Date Sequence Insurance Name Policy Number Policy Mcconnell Covered Member ID Mcconnell Member ID Guarantor Name 03/19/2022 DO NOT USE Reny Castonguay SELF SELF Reny Castonguay 03/24/2022 DO NOT USE Reny Castonguay SELF SELF Reny Castonguay 03/28/2022 DO NOT USE Reny Castonguay SELF SELF Reny Castonguay 06/03/2022 1 [facility] (MEDICAID REPLACEMENT - HMO) [place] Reny L Castonguay [id number] Reny Castonguay 09/16/2022 1 [facility] (MEDICAID REPLACEMENT - HMO) [employer] Reny L Castonguay [id number] Reny Castonguay Notes Date Note Type Note Provider Name and Address Organization Details Recorded Time 06/04/19 23 text/ht ml Sinus Complaints UCReported bypatient.Location:sinus pain;facial pain;sinus pressure Associated Symptoms:no fever; no nausea or vomiting; no sore throat; no ear fullness; no nasal itching; no eye itching; no dizziness;difficulty breathing;Post nasal drip;nasal passage blockage;cough Onset/Timing:worse in am; worse in pm Quality:minimal discomfort;worsening; clear Duration:frequent Severity:moderate Context:no recent upper respiratory infection; no recent sick contacts; not worse with seasonal allergen exposure;worse with environmental exposure Risk Factors:no current smoking or tobacco use; no history of nasal trauma Alleviating factors:oral steroids Aggravating factors:worse during an upper respiratory infection (a cold); worse with excess fatigue Prior Treatmentoral decongestantCongestionReported bypatient.Notes:nasal congestion with post nasal drip x 3 days. denies nay fever or fever with chills. no SOB or respiratory distress. Jaya Brooks NP [address] [place], [address], PA - [facility] 06/03/2022 08:36:42 09/17/19 23 text/ht ml Sore throatReported bypatient.Source of patient informationInformation obtained from patient; Patient arrived at Urgent Care ambulatory; learning styles: auditory Location:throat Severity:mild Quality:sharp; burning Onset/Timin days Associated Symptoms:no sputum production; no shortness of breath; no wheezing; no vomiting; no nausea;sore throat;hoarseness;coughing;sinus pain/ congestion Context:no foreign travel; non-smoker;sick contact Modifying Factors:exposed to Strep non household Jaya Brooks NP [address] [place], [address], PA [employer] [facility] 09/16/2022 15:49:14 OBGyn Episode No OBEpisode recorded.
--- OUTSIDE RECORDS SUMMARY | 2024-06-26 12:55 | XMS_ITS | Encounter Summary ---
Author Organization [facility] Address [address] [place] [address] Care Team Providers Care Malted Milk Supervisor Name Role Phone Triston Samaniego MD Primary Care Provider [phone] Reason for Visit * Reason Onset Date Comments faxed order 05/21/2024 [facility] [id number] Encounter Details Date Type Department Care Team ([facility] st Contact Info) Description 05/21/2024 Telephone Adult Medicine [address] [phone] Triston Samaniego MD [address] [place] [phone] faxed order ([facility] [id number]) Social History Tobacco Use Types Packs/Day Years [...] for your loved ones. For example, child psychometrist or elderly care for an older adult? [...] encounter Progress Notes * Stephany Mina - 05/21/2024 3:00 PM EDT Faxed order received from [facility] [id number] please sign and fax to [phone]. documented in this encounter Plan of Treatment Upcoming Encounters Date Type Department Care Team (Late st Contact Info) Description 07/04/2024 9:15 AM EDT Office Visit Adult Medicine [place] - [address] [phone] Triston Samaniego MD [address] [place] [address] 09/10/2024 9:50 AM EDT Appointment Radiology Department - [address] [phone] documented as of this encounter Visit Diagnoses Not on filedocumented in this encounter Additional Health Concerns Assessment Noted Time PHQ-9 Depression Total Score: 0 05/12/19 25 6:17 PM EDT documented as of this encounter Care Teams Malted Milk Supervisor Relationship Specialty Start Date End Date Triston Samaniego MD [address] [place] [address] PCP - General Internal Medicine 07/15/21 documented as of this encounter
--- OUTSIDE RECORDS SUMMARY | 2024-06-26 12:55 | XMS_ITS | Encounter Summary ---
Author Organization [facility] Address [address] [place] [address] Care Team Providers Care Box Truck Driver Name Role Phone Triston Samaniego MD Primary Care Provider [phone] Reason for Visit * Reason Onset Date Comments faxed order 05/29/2024 [facility] [id number] Encounter Details Date Type Department Care Team (Late st Contact Info) Description 05/29/2024 Telephone Adult Medicine [address] [phone] Triston Samaniego MD [address] [place] [phone] faxed order ([facility] [id number]) Social History Tobacco Use Types Packs/Day Years [...] for your loved ones. For example, child protection specialist or elderly care for an older adult? [...] as of this encounter Progress Notes * Deena Pineda MA - 06/04/2024 2:47 PM EDT Id and labs printed and put in your inbox. * Triston Samaniego MD - 06/04/2024 2:09 PM EDT Please get the recent lab results and ID note from [facility] * Stephany Mina - 05/29/2024 3:21 PM EDT Faxed order received from [facility] [id number] please sign and fax to [phone]. documented in this encounter Plan of Treatment Upcoming Encounters Date Type Department Care Team (Late st Contact Info) Description 07/04/2024 9:15 AM EDT Office Visit Adult Medicine [place] - [address] [phone] Triston Samaniego MD [address] [place] [address] 09/10/2024 9:50 AM EDT Appointment Radiology Department - [address] [phone] documented as of this encounter Visit Diagnoses Not on filedocumented in this encounter Additional Health Concerns Assessment Noted Time PHQ-9 Depression Total Score: 0 05/12/19 25 6:17 PM EDT documented as of this encounter Care Teams Box Truck Driver Relationship Specialty Start Date End Date Triston Samaniego MD [address] [place] [address] PCP - General Internal Medicine 07/15/21 documented as of this encounter
--- OUTSIDE RECORDS SUMMARY | 2024-06-26 12:55 | XMS_ITS | Clinical Summary ---
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 Barbour Signed Date: 04/17/2024 21:16 ET Workstation ID: [id number] Transcribed By: Self Edit Transcribed Date: 04/17/2024 21:11 ET Salome Ines Timothy HAND IMG XR PROCEDURES Final Result * SCREENING MAMMOGRAPHY BI 2-VIEW BREAST INC CAD (09/01/2023 10:02 AM EDT) Anatomical Region Laterality Modality Radiographic Clotilde ging 08/25/2022 7:30 AM EDT Narrative 09/01/2023 4:17 PM EDT This is a summary report. The complete report is available in the patient's medical record. If you cannot access the medical record, please contact the sending organization for a detailed fax or copy. BILATERAL 3D DIGITAL SCREENING MAMMOGRAM History: Routine screening. ??No current breast complaints. ??Family history of breast cancer in mother and grandmother Comparison: Mammogram from 08/25/2022 Technique: Bilateral full-field digital 3D mammography was performed using standard CC and MLO projections, bilateral implant displaced views CAD was used to evaluate this mammogram. Findings: Density: ?? The breasts are heterogeneously dense which may obscure small masses-C RIGHT: No suspicious masses, groups of microcalcification or areas of architectural distortion identified. Stable typically benign parenchymal asymmetries. ??Intact implant. LEFT: No suspicious masses, groups of microcalcifications or areas of architectural distortion identified. Stable typically benign parenchymal asymmetries. ??Intact implant. IMPRESSION: : 1. ??No mammographic evidence of malignancy. BI-RADS Category 2 benign findings Recommendation: Routine annual screening mammography is recommended Procedure Note Deisy Bundy MD - 12/13/2023 This is a summary report. The complete report is available in thepatient's medical record. If you cannot access the medical record, pleasecontact the sending organization for a detailed fax or copy. BILATERAL 3D DIGITAL SCREENING MAMMOGRAM History: Routine screening. No current breast complaints. Family historyof breast cancer in mother and grandmother Comparison: Mammogram from 08/25/2022 Technique: Bilateral full-field digital 3D mammography was performed usingstandard CC and MLO projections, bilateral implant displaced views CAD was used to evaluate this mammogram. Findings: Density: The breasts are heterogeneously dense which may obscure smallmasses-C RIGHT: No suspicious masses, groups of microcalcification or areas ofarchitectural distortion identified. Stable typically benign parenchymalasymmetries. Intact implant. LEFT: No suspicious masses, groups of microcalcifications or areas ofarchitectural distortion identified. Stable typically benign parenchymalasymmetries. Intact implant. IMPRESSION: : 1. No mammographic evidence of malignancy. BI-RADS Category 2 benign findings Recommendation: Routine annual screening mammography is recommended us Triston Samaniego MD IMG XR PROCEDURES Final Res ult * Depression Screening (04/24/2023) Depression Screening Abstracted [facility] Provider HEALTH MAINTENANCE Final Result * (ABNORMAL) Lipid panel (04/24/2023) [facility] LDL/HDL Ratio 3 0 - 4 Triglycerides 116 0 - 150 mg/dL Cholesterol 271(A) 0 - 200 mg/dL HDL 83 >=40 mg/dL LDL Cholesterol 165(A) 0 - 100 mg/dL Blood Venous blood specimen / Unknown [facility] Provider LAB BLOOD ORDERABLES Ame l Result * Hepatitis C Screening (03/02/2023) [facility] Hepatitis C Screening Abstracted [facility] Provider HEALTH MAINTENANCE Final Result * HIV Screening (12/19/2022) [facility] HIV Screening Abstracted [facility] Provider HEALTH MAINTENANCE Final Result * Cervical Cancer Screening: HPV (12/13/2021) [facility] Cervical Cancer Screening: HPV Abstracted, Negative [facility] Provider HEALTH MAINTENANCE Final Result from Last 3 Months or Most Recently Relevant to Health Maintenance Insurance [facility] [employer] Care Teams Patient Account Liaison Relationship Specialty Start Date End Date Triston Samaniego MD [address] [place] [address] PCP - General Internal Medicine 07/15/21
== END 2024-06-26 11:41 | disposition home or self-care (01) ==
LOC: HO.PMC 11:18
PROVIDERS: PCP Internal Medicine; Visit Provider Anesthesiology
DX: M46.1 Sacroiliitis, not elsewhere classified (principal); M53.3 Sacrococcygeal disorders, not elsewhere classified
CPT/HCPCS: 99203

== ENCOUNTER → 2024-06-26 11:17 | Outpatient (BNVA) | payer OTHER, SELFPAY | PROVIDERS: PCP Internal Medicine; Visit Provider Anesthesiology | DX: M46.1 Sacroiliitis, not elsewhere classified (principal); M53.3 Sacrococcygeal disorders, not elsewhere classified | CPT/HCPCS: 99202 ==

== ENCOUNTER 2025-01-08 09:22 | Day surgery (SDC) | payer OTHER, SELFPAY ==
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
--- OUTSIDE RECORDS SUMMARY | 2024-12-25 11:53 | XMS_ITS ---
Author Name [facility] Organization Unknown Encounters Encounter Type Encounter Reason Primary Diagnosis Location Date Ambulatory [facility] 04/30/2024 Ambulatory [facility] 04/30/2024 Care Team Organization Name Specialty Phone Email Start Date End [facility] 05/08/2024 [facility] Triston Samaniego Primary Care 01/04/202209/27
--- OUTSIDE RECORDS SUMMARY | 2024-12-25 11:53 | XMS_ITS | Data Portability ---
Author Organization [facility]AZAN SamanoShepHertzandriy s, [address] Address [address] [place] [address] Assessment No assessment recorded. Plan of Treatment Reminders Order Date Submit Date Provider Last Modified By Organization Details Last Modified Time Details Appointments None recorded. Lab SARS CoV 2 (COVID-19) Ag, QL, IA, upper respiratory specimen [address] [place] [address], [address] [place] [address], [phone], 3 15:48:33 rapid strep group A, throat 2022 023 [facility] [address] [place] [address], [address] [place] [address], [phone], 3 15:48:34 streptococc us group A, culture, throat 2022 023 CULLEN [facility], [address] [place] [address], [place], [address], 3 10:11:17 rapid flu (A+B) [address] [place] [address], [address] [place] [address], [phone], 3 08:36:09 Referral None recorded. Procedures None recorded. Surgeries None recorded. Imaging None recorded. Medication Orders amoxicillin 875 mg tablet 2022 023 [facility][id number], [address] [facility], [place], [address], 3 15:48:33 Allergy Relief (fluticason e) 50 mcg/actuati on nasal spray,suspe nsion 2022 023 [facility]2339, [address] [facility], [place], [address], 3 15:48:33 benzonatate 200 mg capsule 2022 023 [facility]39, [address] [facility], [place], [address], 3 15:48:33 prednisone 20 mg tablet 2022 023 [facility]2339, [address] [facility], [place], [address], 3 15:02:42 albuterol sulfate HFA 90 mcg/actuati on aerosol inhaler 2022 023 [facility]2339, [address] [facility], [place], [address], 3 15:03:08 benzonatate 200 mg capsule 2022 023 [facility], [address] [facility], [place], [address], 3 15:02:41 Allergy Relief (fluticason e) 50 mcg/actuati on nasal spray,suspe nsion 2022 023 [facility]2339, [address] [facility], [place], [address], 3 08:36:13 Patient TargetsNo targets recorded. Patient Instructions Encounter Date Encounter Id Patient Instructions Last Modified By Organization Details Last Modified Time 06/03/2022 [id number] cough: care instructions [email or web address] Not available 06/03/2022 08:36:09 Patient instruct ed [...] as expected. Not available 06/03/2022 08:36:06 09/16/2022 [id number] sore throat: car e instructions Not available [...] undesirable side effects. Probiotics can be purchased obha-hsm-ngdyxxv at your pharmacy in the form of [...] care for yourself at home? Take an pzke-ysa-nyvyzmh pain medicine. Avoid Ibuprofen, Aleve and Aspirin if . If the doctor prescribed antibiotics, take them as directed. Do not stop taking them just because you feel better. You need to take the full course of antibiotics. Be careful when taking bpsd-odg-hwrnatz cold or influenza (flu) medicines and Tylenol [...] Analyte Normal = Negati ve Not Available [address], [address], 06/03/2022 08:14:16 06/04/19 23 06/03/2022 rapid flu (A+B) Unknown Analyte Normal = Negati ve Not Available [address] [place] [address], [phone], 06/03/2022 08:14:16 06/04/19 23 06/03/2022 rapid flu (A+B) Unknown Analyte negati ve Not Available [address] [place] [address], [phone], 06/03/2022 08:14:16 06/04/19 23 06/03/2022 rapid flu (A+B) Unknown Analyte negati ve Not Available [address], [address], 06/03/2022 08:14:16 09/17/19 23 09/19/2022 BETA STREP GP A CULTU RE beta strep gp A culture NEGATI VE Refer ence Range : Negat dylan Not Available [facility] ([facility]) [address] [facility], [place], [address], 09/19/2022 10:11:16 09/17/19 23 09/16/2022 SARS CoV 2 (COVI D-19) Ag, QL, IA, upper respi rator y speci men Unknown Analyte negati ve Not Available [facility] [address], [address], 09/16/2022 15:04:16 09/17/19 23 09/16/2022 rapid strep group A, throa t Unknown Analyte negati ve Not Available [facility] [address], [address], 09/16/2022 15:04:08 Result Notes None recorded. Problems Name Problem SNOMED Code Status Onset Date Resolution Date Notes Provider Name and Address Organization Details Recorded Time Rheumatoid arthritis 36055248 Active 023 [facility] Name and Address Organization Details Recorded Time 039406 Risperdal medicatio n Not available Not available Not available 06/03/2022 65851 8 RxNorm IRIS COUVERTIE R null, PA - [facility] 3 08:12:54 760117 latex environme nt,medica tion Not available Not available Not available 06/03/2022 18527 91 RxNorm IRIS COUVERTIE R null, PA - [facility] 3 08:13:07 032244 Reglan medicatio n Not available Not available Not available 06/03/2022 9230 RxNorm IRIS COUVERTIE R null, PA - [facility] 3 08:13:19 Medications Name Sig Start Date Stop Date Status Note LastModified by Organization Details LastModified Time benzonatate 200 mg capsule Take 1 capsule 3 times a day by oral route as needed for 7 days. 2022 active Not Available Not Available Not Avai lable prednisone 20 mg tablet Take 2 tablets every day by oral route in the morning for 5 days. 09/16 completed Not Available Not Available Not Available amoxicillin 875 mg tablet Take 1 tablet every 12 hours by oral route with meals for 10 days. 2022 active Not Available Not Available Not Avai lable albuterol sulfate HFA 90 mcg/actuati on aerosol inhaler Inhale 2 puffs every 4-6 hours by inhalatio n route as needed for 10 days. 09/16 completed Not Available Not Available Not Available gabapentin active Not Available Not Av ailable Not Available Allergy Relief (fluticason e) 50 mcg/actuati on nasal spray,suspe nsion [place] 1 spray every day by intranasa l route as directed for 30 days. 2022 active Not Available Not Available Not Avai lable Vitals Date Recorded Body height Body mass index (BMI) Body weight Body temperature Respiratory rate Heart rate Oxygen saturation Oxygen saturation in Arterial blood by Pulse oximetry Systolic And Diastolic Provider Name and Address Organization Details Last Updated DateTime 3 165.1 cm 18.5 kg/m2 39063.7 5 g 97.9 [degF] 18 /min 62 /min 100 % 100 % 122/77 mm[Hg] IRIS COUVERTIE R PA - [facility] 3 08:16:14 Date Recorded Body height Body mass index (BMI) Body weight Pain severity - 0-10 verbal numeric rating [Score] - Reported Respiratory rate Oxygen saturation Oxygen saturation in Arterial blood by Pulse oximetry Heart rate Body temperature Systolic And Diastolic Provider Name and Address Organization Details Last Updated DateTime 3 165.1 cm 19.5 kg/m2 70271.3 1 g 9 18 /min 96 % 96 % 81 /min 98.4 [degF] 93/62 mm[Hg] Stephanie Hardenbe PA - [facility] 3 15:05:28 Social History Question Answer Notes LastModified by [employer] Details LastModified Time Tobacco Smoking Status Former Smoker JACE rivera PA - [facility] 06/03/2022 08:13:57 What Is Your Water Source? City Information not available 06/03/2022 What Is Your Heat Source? Other Information not available 06/03/2022 Have You Had Direct Contact, Or Contact During Intimacy, With Monkeypox Rash, Scabs, Or Body Fluids From A Person With Monkeypox? No Information not available 06/03/2022 Have You Recently Traveled Abroad? No Information not available 06/03/2022 Sex: Unknown Functional Status Question Answer Note LastModified by [employer] Details LastModified Time Do you use any illicit or recreational drugs? No Information not available 06/03/2022 Do you or have you ever used any other forms of tobacco or nicotine? No Information not available 06/03/2022 What is your level of alcohol consumption? None Information not available 06/03/2022 Mental Status None recorded. Family History Relationship [...] Influenza, MDCK, quadrivalent, PF 9 completed Stephanie [place] null, PA - [facility] 09/16/2022 15:02:26 pneumococcal polysaccharide PPV23 4 completed Stephanie [place] null, PA - [facility] 09/16/2022 15:02:26 Tdap 8 completed Stephanie Lauren null, PA - [facility] 09/16/2022 15:02:26 Tdap 9 completed Stephanie [place] null, PA - [facility] 09/16/2022 15:02:26 Influenza, split virus, trivalent, preservative 6 completed Stephanie Lauren null, PA - [facility] 09/16/2022 15:02:26 Influenza, split virus, trivalent, preservative 5 completed Stephanie Lauren null, PA - [facility] 09/16/2022 15:02:26 Influenza, split virus, trivalent, preservative 9 completed Stephanie Lauren null, PA - [facility] 09/16/2022 15:02:26 Influenza, split virus, trivalent, preservative 4 completed Stephanie [place] null, PA - [facility] 09/16/2022 15:02:26 Influenza, split virus, trivalent, preservative 8 completed Stephanie Lauren null, PA - [facility] 09/16/2022 15:02:26 Influenza, split virus, trivalent, preservative 6 completed Stephanie Lauren null, PA - [facility] 09/16/2022 15:02:26 Influenza, split virus, trivalent, preservative 7 completed Stephanie Lauren null, PA - [facility] 09/16/2022 15:02:26 Influenza, split virus, trivalent, preservative 2 completed Stephanie [place] null, PA - [facility] 09/16/2022 15:02:26 Influenza, split virus, trivalent, preservative 3 completed Stephanie [place] null, PA - [facility] 09/16/2022 15:02:26 Influenza, split virus, trivalent, PF 5 completed Stephanie [place] null, PA - [facility] 09/16/2022 15:02:26 Novel [id number], preservative-free 9 completed Stephanie [place] null, PA - [facility] 09/16/2022 15:02:26 Hep A-Hep B 7 completed Stephanie [place] null, PA - [facility] 09/16/2022 15:02:26 Hep A-Hep B 6 completed Stephanie [place] null, PA - [facility] 09/16/2022 15:02:26 Hep A-Hep B 6 completed Stephanie [place] null, PA - [facility] 09/16/2022 15:02:26 Past Encounters Encounter ID Performer Location Encounter Start Date Encounter Closed Date Diagnosis/Indication Diagnosis SNOMED-CT Code Diagnosis ICD10 Code Diagnosis IMO Codes Diagnosis Note [id number] [address] [address] [address] [address] [address] 08/05/2021 18:47:14 08/05/2021 20:00:44 [id number] Jaya [place] [address] [address] [address] 03/19/2022 11:56:07 03/19/2022 12:19:13 History and physical examination, pre-employment 690014871 Z02.1 [id number] [place] [address] [address] 03/24/2022 08:03:49 03/24/2022 09:25:14 History and physical examination, pre-employment 557644333 Z02.1 [id number] Jaya Brooks [place] [address] [address] [place] [address] 03/28/2022 08:10:35 03/28/2022 08:43:04 History and physical examination, pre-employment 584619378 Z02.1 [id number] Jaya Brooks NP [address] [address] [place] [address] 06/03/2022 08:01:12 06/03/2022 08:42:48 Acute bronchitis 56365110 J20.9 [id number] Jaya Brooks NP [address] [address] [place] [address] 09/16/2022 14:32:20 09/16/2022 15:54:10 Exposure to SARS-CoV-2 193968859 Z20.822 Acute pharyngitis 358290 003 J02.9 Health Concerns Section Related Observation LastModified by Organization Detai ls LastModified Time None Recorded Concern Status LastModified by Organization Details LastModified Time None Recorded Advance Directives Directive None Recorded Payers Insurance Date Sequence Insurance Name Policy Number Policy Mcconnell Covered Member ID Mcconnell Member ID Guarantor Name 09/16/2022 1 [facility] (MEDICAID REPLACEMENT - HMO) [facility] L Castonguay [id number] Reny Castonguay 09/16/2022 DO NOT USE Reny Castonguay SELF SELF Reny Castonguay 09/16/[address] [facility] (MEDICAID HMO) [facility]y Castonguay [id number] Reny Castonguay Notes Date Note Type Note Provider Name and Address Organization Details Recorded Time 3 text/html Sinus Complaints UCReported by PatientHPIFor location, patient reportssinus pain,facial pain, andsinus pressure. For associated symptoms, patient reportsdifficulty breathing,post nasal drip,nasal passage blockage __, andcoughbut reportsno fever,no nausea or vomiting,no sore throat,no ear fullness,no nasal itching,no eye itching, andno dizziness. For quality, patient reportsworseningbut reportsminimal discomfortandclear. For context, patient reportsworse with environmental exposurebut reportsno recent upper respiratory infection,no recent sick contacts, andnot worse with seasonal allergen exposure. For onset/timing, patient reportsworse in amandworse in pm. For duration, patient reportsfrequent. For severity, patient reportsmoderate. For risk factors, patient reportsno current smoking or tobacco useandno history of nasal trauma. For alleviating factors, patient reportsoral steroids. For aggravating factors, patient reportsworse during an upper respiratory infection (a cold)andworse with excess fatigue. For prior treatment, patient reportsoral decongestant. CongestionReported by Patientnasal congestion with post nasal drip x 3 days. denies nay fever or fever with chills. no SOB or respiratory distress. Shortness of BreathReported by Patient CoughReported by Patient Jaya Brooks NP [address] [place], [address], Apptentive PA - [facility] 06/03/2022 08:36:42 3 text/html Sore throatReported by PatientSore ThroatFor associated symptoms, patient reportssore throat,hoarseness,coughi ng, andsinus pain/ congestionbut reportsno sputum production,no shortness of breath,no wheezing,no vomiting, andno nausea. For context, patient reportssick contactbut reportsno foreign travelandnon-smoker. For modifying factors, patient reportsexposed to strep non household. For source of patient information, patient reportsinformation obtained from patient,patient arrived at urgent care ambulatory, andlearning styles: auditory. For location, patient reportsthroat. For severity, patient reportsmild. For quality, patient reportssharpandburning. For onset/timing, patient reports3 days. Jaya Brooks NP [address] [place], [address], PA - [facility] 09/16/2022 15:49:14 OBGyn Episode No OBEpisode recorded.
--- OUTSIDE RECORDS SUMMARY | 2024-12-25 11:53 | XMS_ITS | Encounter Summary ---
[facility] Address [address] [place] [address] Care Team Providers Care Hot Walker Name Role Phone Triston Samaniego MD Primary Care Provider [phone] Reason for Visit * Reason Onset Date Comments pre-ops 12/24/2024 Encounter Details Date Type Department Care Team (Late st Contact Info) Description 12/24/2024 Telephone Adult Medicine [address] [phone] Triston Samaniego MD [address] [place] [address] Social History Tobacco Use Types Packs/Day Years [...] care for your loved ones. For example, early childhood lead teacher or elderly care for an older [...] Date Recorded What is your living situation? Unrecognized valu e 05/11/2024 Comments No Sex and Gender Information Value Date Recorded Sex Assigned at Female 07/03/2024 8:23 AM EDT Legal Sex Female 7:38 AM EDT Gender Identity Female 07/03/2024 8:23 AM EDT Sexual Orientation Straight 07/03/2024 8: 23 AM EDT documented as of this encounter Progress Notes * Tg Hernandez - 12/24/2024 1:19 PM EDT Pre op appt booked * Radha Lynch - 12/24/2024 12:19 PM EDT Patient requires Preoperative Assessment: Date of surgery: 01/08/2025 What surgery is patient having (gall bladder, cataract, appendix, etc...)?: eye muscle surgery Surgeon's name: DR Bradley Hernandez Office phone number of surgeon: [phone] Fax # for surgeons office: [phone] (Required) Where is surgery being performed? [facility] Diagnosis/problem for surgery: H50.15 Is an EKG required for the pre-op workup? No Or blood work, only weight, height and clear to have surgery PCP: Triston Samaniego MD Did you verify that the insurance below is correct? yes Patients insurance: Payor: [employer] PLAN / Plan: [employer] MEDICAID / Product Type: *No Product type* / documented in this encounter Plan of Treatment Upcoming Encounters Date Type Department Care Team (Late st Contact Info) Description 01/03/2025 10:00 AM EST Consult Adult Medicine [address] [phone] Triston Samaniego MD [address] [place] [address] 01/13/2025 10:30 AM EST Office Visit Adult Medicine [address] [phone] Triston Samaniego MD [address] [place] [phone] documented as of this encounter Visit Diagnoses Not on filedocumented in this encounter Additional Health Concerns Assessment Noted Time PHQ-9 Depression Total Score: 0 05/12/19 25 6:17 PM EDT documented as of this encounter Care Teams Hot Walker Relationship Specialty Start Date End Date Triston Samaniego MD [address] [place] [address] PCP - General Internal Medicine 07/15/21 documented as of this encounter
--- OUTSIDE RECORDS SUMMARY | 2024-12-25 11:53 | XMS_ITS | Clinical Summary ---
Author Organization Patient Business Ser [facility] Address [address] [place] [address] Care Team Providers Care Coiler Name Role Phone Triston Samaniego MD Primary Care Provider Allergies Active Allergy Reactions Criticality Noted Date Comments Latex 10/03/2005 Metoclopramide Hcl Nausea And Vomiting High 12/28/19 05 Other Runny nose 07/22/2010 Seasonal Allergies- Runny nose/rhinitis Risperidone Nausea And Vomiting High 12/27/2004 Medications etanercept (EnbreL SureClick) 50 mg/mL (1 mL) injection pen Inject 50 mg subcutaneously once a week as directed 1 Active acetaminophen (TYLENOL) 500 mg tablet Take 1 tablet (500 mg total) by mouth every 6 (six) hours if needed for mild pain. Active folic acid (FOLVITE) 1 mg tablet Take 1 tablet (1,000 mcg total) by mouth 1 (one) time each day. 90 tablet 1 5 Active morphine (MSIR) 15 mg tablet Take 1 tablet (15 mg total) by mouth every 6 (six) hours if needed for moderate pain. Max Daily Amount: 60 mg 5 Active pregabalin (LYRICA) 100 mg capsule Take 1 capsule (100 mg total) by mouth 2 (two) times a day. Max Daily Amount: 200 mg 5 Active Active Problems Problem Noted Date Diagnosed Date Calcific tendinitis of right hand 11/11/2024 Arthritis of right sacroiliac joint (CMS/[facility] V24 ) 07/03/2024 Mixed hyperlipidemia 05/14/2024 Lumbar radiculopathy, right 05/14/2024 [...] 2001 Rheumatoid arthritis involvi ng multiple joints (CMS/HCC V24, CMS/HCC V28) 12/27/2004 Overview (12/01/2023): SSB POSITIVE Onset 1998; seronegative sulfasalazine ineffective 1999 methotrexate years ago Enbrel helpful since 2002, stopped with as usually goes into remission with again, 05/15-01/15 - Enbrel stopped, did well until end 10/16 Last Assessment & Plan: SSA, SSB antibodies. No treatment at this time. Can see Rheumatology if becomes symptomatic. Encounters Date Type Department Care Team Description 12/24/2024 Telephone Adult Medicine [facility] [address] [place] [address] Triston Samaniego MD 11/11/2024 10:30 AM EDT Office Visit Orthopedic Surgery - [place] [address] [place] [address] Tamara Peter MD Calcific tendinitis of right hand (Primary Dx); Finger pain, right from Last 3 Months Immunizations Immunization Administration Dates Next Due H1N1 Inj Preservative Free 01/07/2009 Hepatitis A-Hepatitis B Adul t (Twinrix) 18yo and older 08/16/2016,02/24/2016,01/18/2016 Influenza Quadravalent, MDCK , 0.5ml, preservative free (Flucelvax) 6mo and older 11/16/2018 Influenza trivalent, 0.5mL, preservative free (Fluarix; FluLaval; Fluzone) ages 6mo and older (Afluria) 3 years and older 12/17/2019 Influenza trivalent, with pr eservative (Fluzone; Afluria) 6mo and older 11/30/2015,10/08/2014,12/10/2013,02/14,02/13/2012,12/08/2008,01/09/2008 ,02/09/2007,02/09/2006,12/07/2004 PPD Test 09/13/2012,10/23/2002 Pneumococcal polysaccharide 23 valent (Pneumovax 23) 2yo and older 03/03/2003 Tdap Tetanus diptheria acell ular pertussis (Boostrix; Adacel) 7yo and older 03/17/2020,11/16/2018,06/29/2007 Surgical History Surgery Date Site/Laterality Comments OTHER SURGICAL HISTORY 02/28/1996 PROCEDURE: WA PREPARATION MOULAGE CUSTOM BREAST IMPLANT; COMMENT: revised 2006 BELT ABDOMINOPLASTY 02/27/2007 PROCEDURE: HISTORICAL TUMMY TUCK OTHER SURGICAL HISTORY PROCEDURE: HISTORY OTHER; COMMENT: eye surgery OTHER SURGICAL HISTORY PROCEDURE: HISTORY OTHER; COMMENT: rthip dislocated OTHER SURGICAL HISTORY PROCEDURE: HISTORY OTHER; COMMENT: Breast augmentation surgery Medical History Medical History Date Comments Borderline personality disor andrei ([facility] V24, [facility] V28) 12/27/2004 DX:Borderline personality d isorder (HCC); COMMENT: pt states this is a missed [...] COMMENT: In remission History of cocaine abuse ( S/[facility] V24, [facility] V28) DX:History of cocaine abuse ([facility]) Osteoarthritis DX:Osteoarthriti s Family History Medical History [...] ed Within the last 3 months, ho erica many times did you visit the emergency [...] care for your loved ones. For example, residential child care counselor or elderly care for an older [...] Orientation Straight 07/03/2024 8: 23 AM EDT Obstetrics History Last Filed Vital Signs Vital Sign Reading Time Taken Comments Blood Pressure 95/63 07/04/2024 9:23 AM EDT Pulse 57 07/04/2024 9:23 AM EDT Temperature 36.2 C (97.2 F) 07/04/2024 9:23 AM EDT Respiratory Rate 15 07/04/2024 9:23 AM EDT Oxygen Saturation 98% 05/14/2024 1:14 PM EDT Inhaled Oxygen Concentration - - Weight 54.9 kg (121 lb 0.5 oz) 11/11/2024 10:34 AM EDT Height 165.1 cm (5' 5 ) 11/11/2024 10:34 AM EDT Body Mass Index 20.14 11/11/2024 10:34 AM EDT Plan of Treatment Upcoming Encounters Date Type Department Care Team (Late st Contact Info) Description 01/03/2025 10:00 AM EST Consult Adult Medicine [address] [phone] Triston Samaniego MD [address] [place] [address] 01/13/2025 10:30 AM EST Office Visit Adult Medicine [address] [phone] Triston Samaniego MD [address] [place] [address] Health Maintenance Due Date Last Done Comments Colorectal Cancer Screening: Colonoscopy 1977 Pneumococcal Vaccine: Pediatrics (0 to 5 Years) and At-Risk Patients (6 to 49 Years) (2 of 2 - PCV) 03/03/2004 03/03/2003 COVID-19 Vaccine ( - season) 2024 Influenza Vaccine (#1) 2024 , 11/16/2018, 11/30/2015, Additional history exists Social Influencers of Health Screening 05/11/2025 05/11/2024 Breast Cancer Screening 08/31/2025 09/01/19 24, 09/01/2023, 08/25/2022 Cervical Cancer Screening: HPV 12/13/2026 12/13/2021 Cholesterol Screening (Lipid Panel) 04/24/2028 04/24/2023 DTaP,Tdap,and Td Vaccines (4 - Td or Tdap) 03/17/2030 03/17/2020, 11/16/2018, 06/29/2007 RSV Immunization Adult Patients (1 - 1-dose 75+ series) 2052 Hepatitis A Vaccines Aged Out 08/16/2016, 02/24/2016, 01/18/2016 No longer eligible based on patient's age to complete this topic Hepatitis B Vaccines Completed 08/16/2016, 02/24/2016, 01/18/2016 HIV Screening Completed 12/19/2022 Hepatitis C Screening Completed 03/02/2023 Depression Screening Completed 05/11/2024, 04/24/19 24 HIB Vaccines Aged Out No longer eligi [...] Procedure Name Priority Date/Time Associated Diagnosis Comments XR FINGERS 2+ VIEWS RIGHT Routine 11/11/2024 11:15 AM EDT Finger pain, right SCREENING MAMMOGRAPHY BI 2-VIEW BREAST INC CAD Routine 09/01/2023 10:02 AM EDT Encounter for screening mammogram for malignant neoplasm of breast DEPRESSION SCREENING Routine 04/24/2023 LIPID PANEL Routine 04/24/2023 HEPATITIS C SCREENING Routine 03/02/2023 HIV SCREENING Routine 12/19/2022 HPV Routine 12/13/2021 from Last 3 Months or Most Recently Relevant to Health Maintenance Results * XR Fingers 2+ Views Right (11/11/2024 11:15 AM EDT) Anatomical Region Laterality Modality Upper Extremities, Fingers Right Compu neetu Radiography Narrative 11/11/2024 3:53 PM EDT AP, lateral, oblique of the right index finger was obtained on 11/11/2024. Patient has periarticular calcification on the radial side of the PIP joint just at the base of the middle phalanx. There is a very small amount on the ulnar side. Primary lesion is on the radial side. Joint spaces maintained. No lytic changes. No obvious fractures. Impression: Periarticular calcification radial side PIP joint right index us Tamara Peter MD IMG XR PROCEDURES Final Resul t * SCREENING MAMMOGRAPHY BI 2-VIEW BREAST INC [...] Routine screening. No current breast complaints. Family history of breast cancer in mother and [...] distortion identified. Stable typically benign parenchymal asymmetries. Intact implant. LEFT: No suspicious masses, groups of microcalcifications or areas of architectural distortion identified. Stable typically benign parenchymal asymmetries. Intact implant. IMPRESSION: : 1. No mammographic [...] Recommendation: Routine annual screening mammography is recommended Triston Samaniego MD IMG XR PROCEDURES Final Res ult * Depression Screening (04/24/2023) Pathologist [facility] Depression Screening Abstracted Result [facility] Historical Provider HEALTH MAINTENANCE Final Result * (ABNORMAL) Lipid panel (04/24/2023) [facility] LDL/HDL Ratio 3 0 - 4 Triglycerides 116 0 - 150 mg/dL Cholesterol 271(A) 0 - 200 mg/dL HDL 83 >=40 mg/dL LDL Cholesterol 165(A) 0 - 100 mg/dL Blood Venous blood specimen / Unknown Result [facility] Provider LAB BLOOD ORDERABLES Ame l Result * Hepatitis C Screening (03/02/2023) Pathologist [facility] Hepatitis C Screening Abstracted Result [facility] Provider HEALTH MAINTENANCE Final Result * HIV Screening (12/19/2022) [facility] HIV Screening Abstracted Result [facility] Provider HEALTH MAINTENANCE Final Result * Cervical Cancer Screening: HPV (12/13/2021) [facility] Cervical Cancer Screening: HPV Abstracted, Negative Result [facility] Provider HEALTH MAINTENANCE Final Result from Last 3 Months or Most Recently Relevant to Health Maintenance Insurance [facility] [employer] Care Teams Coiler Relationship Specialty Start Date End Date Triston Samaniego MD [address] [place] [address] PCP - General Internal Medicine 07/15/21
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
[2025-01-08] VITALS (8 sets, daily range): BP systolic 104–118; BP diastolic 65–77; PULSE 50–87; RESP 12–17; TEMP 36.3–36.9; O2SAT 98–100; BMI 20.2
[2025-01-08 10:05] LABS: UPreg QC Valid YES
[2025-01-08 10:11] LABS: Cannabinoid Screen Urine Not Detected (Not Detect)
[2025-01-08] MEDS: Lactated Ringers 1,000 ML 100 ML IVCONT (10:30)
--- NOTE | 2025-01-08 13:30 | P.OPHTHAL_ITS ---
Ophthalmology Operative Note Date of Service: 01/08/25 Narrative: Diagnosis exotropia. Postoperative diagnosis same. Procedure bilateral lateral rectus recessions of [address] Hernandez. Anesthesia general. Complications none. The patient was brought to the operative room placed under general anesthesia. The eyes were prepped and draped in the usual sterile ophthalmic fashion. A lid speculum was placed in the right eye and the decision was made to bare sclera in the inferotemporal fornix. The lateral rectus was hooked and secured with a double-armed Vicryl suture. It was disinserted from the globe and reattached to a position 6 mm behind the original insertion. Con junctiva was closed with interrupted Vicryl sutures. An identical procedure was then performed on the left eye. The patient was then awoken from general anesthesia and discharged to postoperative recovery in good condition.
[2025-01-08] MEDS: Tetracaine HCl/PF 0.5% Oph Sol 4 ML DROPS 1 DROP EYE-BOTH ×2 (13:43→14:13)
[2025-01-08] MEDS: oxyCODONE HCl Immed Release 5 MG TABLET PO (14:03)
== END 2025-01-08 14:49 | disposition home or self-care (01) ==
PROVIDERS: Nurse Practitioner; PCP Internal Medicine; Visit Provider Ophthalmology
PROC: (CPT 67311; principal; 2025-01-08 13:20)
DX: H50.15 Alternating exotropia (principal); J45.909 Unspecified asthma, uncomplicated; E78.2 Mixed hyperlipidemia; M06.9 Rheumatoid arthritis, unspecified; G89.29 Other chronic pain; M54.50 Low back pain, unspecified; R56.9 Unspecified convulsions; Z86.14 Personal history of Methicillin resistant Staphylococcus aureus infection; Z86.19 Personal history of other infectious and parasitic diseases; Z87.820 Personal history of traumatic brain injury; Z79.899 Other long term (current) drug therapy; Z91.040 Latex allergy status; Z98.890 Other specified postprocedural states
CPT/HCPCS: 67311; 80307; 81025; J0131; J1100; J1885; J2003; J2250; J2405; J3010